=== PATIENT | male | born 1950 | race Caucasian/White ===

== ENCOUNTER 2024-02-04 08:10 | Inpatient (IN) | payer MEDICARE, OTHER, SELFPAY ==
[2024-02-03] VITALS (10 sets, daily range): BP systolic 91–132; BP diastolic 51–63; BMI 24.4; BMI 25.3
--- NOTE | 2024-02-03 11:05 | ED.GENMED ---
History of Present Illness
General
Chief Complaint: Seizure
Source: patient and spouse
Exam Limitations: none
Time Seen by Provider: 02/03/24 10:55
Nursing documentation reviewed up to this point in time: agreed with
History of Present Illness
History of Present Illness:
The patient is a generally well and healthy 73-year-old man with a past medical history of hyperlipidemia who was witnessed by his to have a seizure at around 10 AM this morning. His reports that he was sleeping at the time. She reports
that he sat up in bed and his arms and legs were rigid. She reports that he was unresponsive and slid out of bed. Patient that both sides of his tongue and urinated in his pants. reports he has never had a seizure before. Patient is now
much more awake and alert. He complains of feeling sleepy and says his tongue just feels numb and painful. He denies headache and vision changes. He denies neck pain and back pain. denies any heavy alcohol use or changes in medication.
Past History
Past History
ED Past Medical History: HTN and Hypercholesterolemia
ED Past Surgical History: Appendectomy, Orthopedic and Tonsilectomy
Social History
Tobacco: Other
Alcohol: Occasional
Drug: None
Personal:
Living: with family
Employment: Other
Family History
Family History: Other
Review of Systems
Review of Systems
Allergies reviewed?: Yes
All Other Systems: ROS reviewed and negative except as documented in HPI and ROS
Constitutional: Reports fatigue
EENT: Reports other (Bit tongue)
Respiratory: Reports no symptoms
Cardiac: Reports no symptoms
ABD/GI: Reports no symptoms
: Reports no symptoms
Musculoskeletal: Reports no symptoms
Skin: Reports no symptoms
Neurological: Reports other
Endocrine: Reports no symptoms
Hematologic/Lymphatic: Reports no symptoms
Psychiatric: Reports no symptoms
Phy Exam
Physical Exam
Physical Exam:
Physical Exam
General: Patient appears tired but no acute distress. He is arousable and answers all questions. Atraumatic appearing face and head
Neck: supple. no meningeal signs. Nontender C-spine. Teeth willis along both sides of tongue without any deep laceration. dried blood in mouth
Heart: s1/s2 regular rate and rhythm, no murmur. equal radial pulses.
Lungs: no acute respiratory distress. clear. No vertebral spine tenderness
Abdomen: Soft, nontender
Neuro: alert and orientedx3. no focal neurological deficits. Face symmetric. Equal sensation and strength bilaterally
Skin: no rash
Psychiatric: well kept. interactive and cooperative
Extremities: Atraumatic upper and lower extremities
Course
Orders/Labs/Results
Orders:
Orders
02/03/24
Electrocardiogram (*1) Stat
Comment: ALREADY DONE
02/03/24 11:01
CT Head W/o Iv Contrast Urgent
Comment:
Reason For Exam: new onset seizure
02/03/24 11:02
Electrocardiogram (*1) Urgent
Reason for Study: Other
Other Reason for Exam: seizure
EKG- Treatment ONCE
02/03/24 11:03
0.9% Sodium Chloride 500 ml [Nss] 500 ml IV BOLUS
Ondansetron Injectable [Zofran] 4 mg IV NOW STA
02/03/24 11:13
Complete Blood Count/With Diff Urgent
Comprehensive Metabolic Panel Urgent
02/03/24 13:41
Troponin I Urgent
Abnormal Lab Results
02/03/24
11:13
RBC 4.57 L 10^6/uL
(4.70-6.10)
Abs Immat Gran (auto) 0.1 H 10^3/uL
(0-0.05)
Immature Gran % 1.1 H %
(0-0.5)
Carbon Dioxide 18 L mmol/L
(22-30)
BUN 24 H mg/dl
(9-20)
Glucose 165 H mg/dl
(70-99)
02/03/24 11:13
02/03/24 11:13
Vital Signs
Initial and Last Documented VS:
Initial Vital Signs
Temp Pulse Resp BP Pulse Ox
97.6 F 65 16 121/52 92
02/03/24 10:51 02/03/24 10:51 02/03/24 10:51 02/03/24 10:51 02/03/24 10:51
Last Documented Vital Signs
Temp Pulse Resp BP Pulse Ox
97.6 F 54 11 113/62 98
02/03/24 10:51 02/03/24 13:30 02/03/24 13:30 02/03/24 13:00 02/03/24 13:30
MDM/Problems Addressed
Differential Diagnosis Includes:
New onset seizure, epilepsy, intracranial hemorrhage, syncope
MDM/Problems Addressed:
Patient presents with new onset acute seizure
*Radiology
Radiology exam reviewed: radiology read reviewed
*Pulse Oximetry
Patient hypoxic: no
*EKG
Interpreted by ED Provider?: Yes
Interpretation: abnormal
Comparison EKG: no comparison EKG present
Rate: bradycardiac
Rhythm: sinus
[place]: left axis deviation
Interval: normal interval
QRS Pattern: normal QRS
Ischemia: no ischemia
*Christian [employer] Reader Interpretation
Rate: bradycardiac
Interpretation: abnormal
Rhythm: sinus
*Critical Care Note
Total Time (30-74mins, 75-104mins- exclusive of procedures): Not Applicable
Data Reviewed
Review of Other/Old Records Reveals: Other (telemetry monitor record from showed a heart rate about 75 bpm in 2019)
Source: patient and spouse
Patient Management
Social determinants of health affecting care: Living situation
Discussion with other providers: Hospitalist
Escalation/DeEscalation of care consider admission/obs:
Fortunately, patient's CAT scan showed no acute disease. Patient has been fully awake and alert with a normal neurological exam. 's history is very consistent with seizure, especially given that patient bit his tongue and urinated in his
pants. However, patient's heart rate has dipped down into the 30s multiple times in the emergency department. Patient reports that over the last few days he has been extremely lightheaded and nearly passing out. Given this history, decision made
to admit the patient and watch his cardiac activity. EEG can also be considered.
ED Attending Note
-
Portions of this chart may have been created with voice recognition software.� Occasional wrong word or��sound alike� substitutions may have occurred due to the inherent limitations of voice recognition software.
Discharge Plan
Departure
Patient Disposition: Admit
Date of Disposition: 02/03/24
Time of Disposition: 13:27
Admit to: Telemetry
Presentation/result/management discussed w/ accepting MD/DO: Hospitalist
Patient with high blood pressure during this ER visit?: Yes
Condition: Good
Covid-19: Not Applicable
Discharge Problem:
Bradycardia, sinus, New onset seizure
Prescriptions:
No Action
Metamucil Fiber Singles 1 PACKET powder in packet
0.5 packet PO DAILY
latanoprost 0.005 % Drops
1 drp BOTH EYES HS
Theragen Tablet
1 tab PO DAILY
ibuprofen [Advil] 200 mg Tablet
200 mg PO Q6HPRN PRN (Reason: mild pain)
olmesartan-hydrochlorothiazide 20-12.5 mg Tablet
1 tab PO DAILY
rosuvastatin [Crestor] 10 mg Tablet
10 mg PO MOWEFR
Referrals:
Philipp Vegas DO [Family Provider] -
Interventions
Interventions:
*Risk Screen - Suicide Last Done: 02/03/24 10:56
*General Assessment Last Done: 02/03/24 10:56
*Neglect/Abuse Screening Last Done: 02/03/24 10:56
*ED COVID-19 Vaccine History Last Done: 02/03/24 10:56
ED- Cardiac Assessment Last Done: 02/03/24 10:57
ED- Neurological Assessment Last Done: 02/03/24 10:57
ED- Pulmonary Assessment Last Done: 02/03/24 10:57
Discharge Date and Time
Print Language: VIETNAMESE
[2024-02-03] MEDS: ZOFRAN 4 MG IV (11:15)
[2024-02-03] MEDS: NSS 500 IV (11:15)
[2024-02-03 11:32] LABS: ALT (SGPT) 22 U/L (0-50); AST (SGOT) 28 U/L (17-59); Albumin 4.2 g/dl (3.5-5.0); Alkaline Phosphatase 40 U/L (38-126); Blood Urea Nitrogen 24 mg/dl (9-20); Calcium 8.9 mg/dl (8.4-10.2); Carbon Dioxide 18 mmol/L (22-30); Chloride 107 mmol/L (98-107); Estimated Creatinine Clearance -14 ml/min; Glucose 165 mg/dl (70-99); Potassium 4.1 mmol/L (3.5-5.1); Sodium 140 mmol/L (135-145); Total Bilirubin 0.5 mg/dl (0.2-1.3); Total Protein 6.6 g/dl (6.3-8.2); eGFR > 60.00
[2024-02-03 11:46] LABS: % Basophils 0.8 % (0-2); % Eosinophils 2.4 % (0-6); % Immature Granulocytes 1.1 % (0-0.5); % Lymphocytes 35.9 % (20.5-51.1); % Monocytes 6.8 % (1.7-9.3); Absolute Basophils 0.1 10^3/uL (0-0.2); Absolute Eosinophils 0.2 10^3/uL (0-0.7); Absolute Immature Granulocytes 0.1 10^3/uL (0-0.05); Absolute Lymphocytes 2.5 10^3/uL (1.2-3.4); Absolute Monocytes 0.5 10^3/uL (0.1-0.6); Absolute Neutrophils 3.7 10^3/uL (1.4-6.5); Hematocrit 41.4 % (39.0-52.0); Hemoglobin 14.1 g/dL (13.0-18.0); Mean Corp Hgb Conc. 34.1 g/dL (33.0-37.0); Mean Corpuscular Hgb 30.9 pg (27.0-31.0); Mean Corpuscular Volume 90.6 fL (80.0-94.0); Mean Platelet Volume 10.2 fL (7.4-10.4); Nucleated Red Blood Cells % 0 % (-); Platelet Count 273 10^3/uL (130-400); Red Blood Cell Count 4.57 10^6/uL (4.70-6.10); Red Cell Dist. Width 12.2 % (11.5-14.5); White Blood Cell Count 7.1 10^3/uL (4.8-10.8)
[2024-02-03 14:13] LABS: Troponin I < 0.012 ng/ml
--- NOTE | 2024-02-03 14:19 | HPS.HSE ---
Family Physician
-
Family Physician: Philipp Vegas
Chief Complaint
-
Seizure this morning
History of Present Illness
73 y/o male with past medical history of hypertension, hypercholesterolemia, diverticulosis, arthritis with concern for fusion of cervical bones, presented after seizure activity this morning. Patient's was present in the patient's room at the
time of encounter and helped with the history. Patient's says that patient stiffened in his bed around 10 am this morning with his hands in the air and his knees flex and feet in the air this morning, he bit his tongue with associated bleeding,
and he was confused afterwards. Patient also says he has also been sleeping more lately, and feeling tingling which wakes him up from sleep, he currently has some nause and mild frontal headache. He denied any fever, cough, or chest pain.
Medical History
Past Medical History
Past Medical History: Reports Other (As per HPI above)
Past Surgical History: Reports Appendectomy, Orthopedic and Tonsilectomy
Social History
Tobacco: Non-smoker
Alcohol: Occasional
Drug: None
Family History
Family History: Hypertension
Allergies / Home Medications
Allergies reflects when Allergies were last updated in [facility].
Home Medications with original date entered in [facility]
Allergy/Medication List:
Allergies
Allergy/AdvReac Type Severity Reaction Status Date / Time
NKA - No Known Allergies Allergy Unknown Uncoded 02/03/24 10:56
Home Medications
psyllium husk (aspartame) 3.4 gram oral powder packet (Metamucil Fiber Singles) 0.5 packet PO DAILY 08/30/11
ibuprofen 200 mg tablet (Advil) 200 mg PO Q6HPRN PRN mild pain 02/03/24
latanoprost 0.005 % eye drops 1 drp BOTH EYES HS 02/03/24
olmesartan 20 mg-hydrochlorothiazide 12.5 mg tablet 1 tab PO DAILY 02/03/24
rosuvastatin 10 mg tablet 10 mg PO MOWEFR 02/03/24
therapeutic multivitamin 1 tab PO DAILY 02/03/24
Review of Systems
-
A 12 point ROS was completed and negative except as noted: Yes
Physical Exam
Vital Signs
Vital Signs
Temp Pulse Resp BP Pulse Ox
97.6 F 54 11 113/62 98
02/03/24 10:51 02/03/24 13:30 02/03/24 13:30 02/03/24 13:00 02/03/24 13:30
Physical Exam
General: No Apparent Distress, Comfortable and Conversant
HEENT: NormoCephalic and Moist mucous membranes
Respiratory: Clear
Cardiac: S1/S2 and Regular Rhythm
GI: Soft, Non Tender and Normal Bowel Sounds
Musculoskeletal: No Cyanosis and No Edema
Skin: Warm and Dry
Neuro: Awake, Alert, AO x 3, Nonfocal/grossly intact and Cranial Nerves Intact
Psych: Calm and Intact Judgment/Insight
Laboratory Results
-
02/03/24 11:13
02/03/24 11:13
Laboratory Results
Total Bilirubin 0.5 mg/dl (0.2-1.3) 02/03/24 11:13
AST 28 U/L (17-59) 02/03/24 11:13
ALT 22 U/L (0-50) 02/03/24 11:13
Alkaline Phosphatase 40 U/L (38-126) 02/03/24 11:13
Troponin I < 0.012 ng/ml 02/03/24 13:41
Impression/Plan
-
Assessment/Plan
Suspected Seizure This Morning with associated tongue-biting
Tingling Sensation waking patient up from sleep
-CT Head with no acute changes
-Consult neurology, recommendations appreciated
-Seizure precautions
-Neurochecks
Concern for symptomatic bradycardia with associated lightheadedness
-In the ER, heart rate was dropping into the 30s several times, as per ER provider
-Patient reports feeling dizzy and tingling when sleeping which wakes him up from sleep
-Tele monitor
-EKG with SB
-Troponins
-Cardiology will be consulted, recommendations appreciated
Hypertension
-Continue home ARB-HCTZ combo
Hypercholesterolemia
-Continue Rosuvastatin
History of Diverticulosis
Arthritis with concern for fusion of cervical bones
DVT PPx: Lovenox
Code Status: Full Code
--- NOTE | 2024-02-03 16:16 | CON.CAR ---
Consultation
Consultation Request
Date/Time Consultation Requested: 02/03/2024
Date/Time Consultation Performed: 02/03/2024
Requesting Provider: Hospitalist Dr. Esqueda
Performing Provider: Dr. Amaral
Reason for Consultation: Bradycardia
Medical History
-
History of Present Illness:
73-year-old male past medical history noted below who presented with suspected seizure activity. Episode witnessed by his . She states he was lying in bed and then suddenly his arms went straight out in the air and he flexed both of his legs
and he appeared to be stiff at the same time he had shouted something he then tilted over and fell off the bed. He was not responsive but was breathing. She called 911. He only recalls being in the ambulance for couple seconds but he says that
everything else is a blank. He just remembers being in the ER. No prior history of seizures or syncope.
Patient states that over the last month he has had 3-4 episodes when he gets this sensation that wakes him up this kind of like some dizziness with some tingling in both of his legs he suddenly wakes up and he is panicked he is briefly disoriented
and then he reorients himself. He was going to see his PCP for evaluation of this issue. No prior history of neurologic issues no trauma no recent changes in medications.
On initial evaluation in the ER he was noted to have sinus bradycardia. Initial ECG notable for sinus bradycardia with heart rate of 46 and second EKG with sinus bradycardia heart rate in the 50s. Review of telemetry in the ER had heart rates in
the 50s. Currently on telemetry his heart rates in the 70s.
Past medical history
Hypertension
Hypercholesterolemia
Diverticulosis
Past Medical History
Past Medical History: Other (Above)
Social History
Tobacco: Non-Smoker
Family History
Family History: Other (Negative for premature CAD)
Allergies / Home Medications
Allergy/AdvReac Type Severity Reaction Status Date / Time
NKA - No Known Allergies Allergy Unknown Uncoded 02/03/24 10:56
�Medication �Instructions �Recorded �Confirmed �Type
psyllium husk (aspartame) 3.4 gram 0.5 packet PO DAILY 08/30/11 02/03/24 History
oral powder packet (Metamucil
Fiber Singles)
ibuprofen 200 mg tablet (Advil) 200 mg PO Q6HPRN PRN mild pain 02/03/24 02/03/24 History
latanoprost 0.005 % eye drops 1 drp BOTH EYES HS 02/03/24 02/03/24 History
olmesartan 20 1 tab PO DAILY 02/03/24 02/03/24 History
mg-hydrochlorothiazide 12.5 mg
tablet
rosuvastatin 10 mg tablet 10 mg PO MOWEFR 02/03/24 02/03/24 History
therapeutic multivitamin 1 tab PO DAILY 02/03/24 02/03/24 History
Review of Systems
-
All other systems: Negative unless noted
Physical Exam
Vital Signs
Temp Pulse Resp BP Pulse Ox
97.6 F 64 18 107/59 96
02/03/24 10:51 02/03/24 15:30 02/03/24 15:30 02/03/24 15:03 02/03/24 15:30
Lab Results
02/03/24 11:13
02/03/24 11:13
Troponin I < 0.012 ng/ml 02/03/24 13:41
Physical Exam
General: Well Developed
HEENT: Normocephalic, Anicteric and Other (I injection points intact pupils are equal external ear normal exam unremarkable)
Respiratory: Clear
Cardiac: Regular Rhythm
GI: Soft, Non Tender, Non Distended and Normal Bowel Sounds
Musculoskeletal: No Clubbing
Skin: Warm, Dry and Rash
Neuro: Awake and Alert
Hematologic/Lymphatic: No Lymphadenopathy
Psych: Calm
Impression / Plan
-
Seizure. Patient had apparent seizure-like activity and bit his tongue. Appears patient had a seizure. This may just be a primary seizure. The possibility of a secondary seizure related to syncope is within the realm of possibility but no clear
evidence at this point that patient had syncopal episode. He was noted to have sinus bradycardia. No evidence yet that the patient's had evidence of symptomatic bradycardia.
-Additional assessment of seizure activity as directed by primary team and neurology
.
Bradycardia. Initial ECG with sinus bradycardia with heart rate of 46. Since in the ER patient send heart rates in the 50s no long pauses or indication for pacing at this time.
-Continue to monitor on telemetry
-Echocardiogram
-Check TSH
Data Reviewed
-
EKG: Report Reviewed by me
Radiology: Report Reviewed by me
Medical Tests (Nuc Med, Echo etc): Report Reviewed by me
Labs: Labs Reviewed by me
Old Records: Reviewed
--- NOTE | 2024-02-03 16:45 | PTCARENOTE ---
Received pt from ED.Pt awake, alert and oriented x3. Pt has chronic pain in neck, knees and back from arthritis, tolerable at this time. Pt also has discomfort on tongue from biting it. Pt VSS 99% on RA.Pt Sb on tele. Pt seizure precautions, bed
rails padded for protection. Pt oriented to room, call schofield within reach, instructed to ring for assistance, verbalized understanding, plan of care ongoing.
[2024-02-03] MEDS: LOVENOX 40 MG SC (17:18)
[2024-02-03] MEDS: XALATAN OPHTHALMIC SOLUTION 1 DROP BOTH EYES (21:13)
[2024-02-03 21:33] LABS: Troponin I 0.031 ng/ml
--- NOTE | 2024-02-03 22:30 | PTCARENOTE ---
Patient with a 2.9 second pause, HR 36. Patient asymptomatic. HEDGE FUND TRADER aware. Plan of care continues.
[2024-02-04] VITALS (10 sets, daily range): BP systolic 88–121; BP diastolic 53–68
--- NOTE | 2024-02-04 00:06 | W.PN.UPDATE ---
Addendum entered and electronically signed by DILIP Addison 02/04/24 06:33:
This am pt had another pause on tele--> 4.8 sec. Again asymptomatic and sleeping.
Will make pt npo in case pacemaker needed.
RN also updated Dr brennan
Original Note:
Update Note
Progress Note Update
RN reports 2.9 sec pause on tele. PT asymptomatic at that time. Sleeping
Will continue to closely watch HR on tele.
--- NOTE | 2024-02-04 06:44 | W.PN.CD ---
Today's Communication / Plan
-
overnight pauses of 3 seconds and 4.9 seconds. Raises question of nocturnal symptoms and seizure prior to admit are related to bradycardia.
- Based on above pacemaker recommended. Will review with EP
-NPO
-Continue to monitor on telemetry
-Echocardiogram
Impression / Plan
-
Seizure. Patient had apparent seizure-like activity and bit his tongue. Primary vs secondary seizurepatietn has been having odd wwaking spells at night. Wakesup in a panic and is disroriented. He says he has an odd sensation just before waking
duringthese events.
- monitor on tele
- neuro assessment
.
Bradycardia. Initial ECG with sinus bradycardia with heart rate of 46. Since in the ER patient send heart rates in the 50s .
overnight pauses of 3 seconds and 4.9 seconds. Raises question of nocturnal symptoms and seizure prior to admit are related to bradycardia.
- Based on above pacemaker recommended. Will review with EP
-Continue to monitor on telemetry
-Echocardiogram
-Check TSH
Physical Exam
Vital Signs/Labs
Vital Signs
Temp Pulse Resp BP Pulse Ox
98.6 F 75 17 101/53 99
02/04/24 03:42 02/04/24 03:42 02/04/24 03:42 02/04/24 03:42 02/04/24 03:42
02/02/24 02/03/24 02/04/24
06:59 06:59 06:59
Actual Weight 66.814 kg
LAB Results
02/03/24 02/03/24 02/04/24
13:41 21:01 02:34
Troponin I < 0.012 0.031 D 0.020 D
Physical Exam
Constitutional: No acute distress
EENT: Anicteric
Cardiovascular: Rhythm & rate is regular
Respiratory: Respiratory effort normal
GI: Soft
Neuro/Psych: Alert
Data Reviewed
-
Date of Service: February 04, 2024
Medical Decision Making: Reviewed Test Results
EKG: Report Reviewed by me
X-Ray/CT/US/MRI/NUC/PET: Report Reviewed by me
Medical Tests (PFT, Pathology etc): Report Reviewed by me
Labs: Labs Reviewed by me
--- NOTE | 2024-02-04 07:25 | PTCARENOTE ---
Patient had a 4.8 second pause, asymptomatic. HEALTH DATA ADMINISTRATOR made aware. She place order for patient to be NPO, Dr. Amaral made aware via TT and came to floor to see patient.
[2024-02-04] MEDS: METAMUCIL, KONSYL PO (08:25)
[2024-02-04] MEDS: ORETIC 12.5 MG PO (08:25)
[2024-02-04] MEDS: BENICAR 20 MG PO (08:25)
[2024-02-04] MEDS: THERAGRAN 1 TABLET PO (08:25)
[2024-02-04] MEDS: CRESTOR 10 MG PO (08:27)
[2024-02-04 08:40] LABS: % Basophils 0.4 % (0-2); % Eosinophils 0.8 % (0-6); % Immature Granulocytes 0.3 % (0-0.5); % Lymphocytes 14.7 % (20.5-51.1); % Monocytes 6.9 % (1.7-9.3); % Neutrophils 76.9 % (42.2-75.2); Absolute Eosinophils 0.1 10^3/uL (0-0.7); Absolute Lymphocytes 1.1 10^3/uL (1.2-3.4); Absolute Monocytes 0.5 10^3/uL (0.1-0.6); Absolute Neutrophils 5.5 10^3/uL (1.4-6.5); Hematocrit 36.4 % (39.0-52.0); Hemoglobin 12.5 g/dL (13.0-18.0); Mean Corp Hgb Conc. 34.3 g/dL (33.0-37.0); Mean Corpuscular Hgb 30.9 pg (27.0-31.0); Mean Corpuscular Volume 90.1 fL (80.0-94.0); Mean Platelet Volume 10.4 fL (7.4-10.4); Nucleated Red Blood Cells % 0 % (-); Platelet Count 188 10^3/uL (130-400); Red Blood Cell Count 4.04 10^6/uL (4.70-6.10); Red Cell Dist. Width 12.3 % (11.5-14.5); White Blood Cell Count 7.2 10^3/uL (4.8-10.8)
[2024-02-04 09:12] LABS: Blood Urea Nitrogen 22 mg/dl (9-20); Calcium 8.9 mg/dl (8.4-10.2); Carbon Dioxide 25 mmol/L (22-30); Chloride 104 mmol/L (98-107); Estimated Creatinine Clearance 44 ml/min; Glucose 96 mg/dl (70-99); Magnesium 2.4 mg/dl (1.6-2.3); Potassium 3.8 mmol/L (3.5-5.1); Sodium 137 mmol/L (135-145); eGFR 58.73
[2024-02-04 09:29] LABS: Troponin I 0.013 ng/ml
[2024-02-04 09:42] LABS: TSH 1.27 uIU/ml (0.47-4.68)
--- NOTE | 2024-02-04 09:55 | W.PN.HOSP.TC ---
Today's Communication/Plan
-
Neurology consult
Pacemaker placement
TSH
Assessment / Plan
Assessment / Plan
Gen-AAOx3, NAD
HEENT-NC, AT, anicteric, clear oral mm
Neck-supple
CV-reg, no M, +S1/S2
Lungs-clear B/L
Abd-soft, NT, ND
Ext-no edema
Musculoskeletal-no cyanosis, clubbing
Skin-warm and dry
Neuro-grossly non-focal
Psych-calm, cooperative
Symptomatic bradycardia -appreciate cardiology input. Await pacemaker placement. 4.8-second pause noted overnight. Occurred during sleep. TSH pending.
Presumed seizure -denies history of seizures. Did have bowel incontinence and tongue biting associated with reported tonic-clonic activity noted by at home.
Neurology consulted. CT head negative.
Essential hypertension -stable.
Hyperlipidemia
Diverticulosis
Glaucoma
full code
Anticipated Discharge: Within 24 hours
Subjective/Interval History
-
Date of Service: February 04, 2024
Patient seen and examined. No complaints.
Objective Data
-
Labs:
Laboratory Results
02/04/24
06:15
WBC 7.2
Hgb 12.5 L
Hct 36.4 L
Plt Count 188 D
Sodium 137
Potassium 3.8
Chloride 104
Carbon Dioxide 25
BUN 22 H
Creatinine 1.3
Glucose 96
Calcium 8.9
Vital Signs:
Vital Signs
Temp Pulse Resp BP Pulse Ox
98.9 F 69 16 104/62 96
02/04/24 07:00 02/04/24 07:00 02/04/24 07:00 02/04/24 07:00 02/04/24 07:00
I&O
02/03/24 02/04/24 02/05/24
06:59 06:59 06:59
Intake Total 480 / 480
Balance 480 / 480
Review of Systems
-
History Source: Patient
All other systems: Reviewed and negative
--- NOTE | 2024-02-04 11:20 | CON.NEURO4 ---
Consultation - Neurology 4
-
CONSULTING PHYSICIAN: Marc Chapman MD(Neurology)
REFERRING PHYSICIAN: Luis Enrique
DICTATED BY: Marc Chapman MD
DATE/TIME OF REQUEST: 02/03/2024
DATE/TIME OF CONSULTATION: 02/04/2024 1030A
Reason for Consultation: AMS
History of Present Illness:
This is a 73 year old right handed male who was admitted to the hospital with new onset seizure. He gives a h/o hypertension, hypercholesterolemia, diverticulosis, cervical spondylosis presented after seizure activity yesterday morning. Pat
remebers getting up earlier in the morning and letting his dogs out. he then returned to bed. Patient's says that patient stiffened in his bed around 10 am this morning with his hands in the air and his knees flexed and feet in the air this
morning, he bit his tongue with associated bleeding, and he was confused afterwards. Patient also says he has also been sleeping more lately, and feeling tingling which wakes him up from sleep.
He denied any fever, cough, or chest pain.
Following admission he has had no further episodes. However he had bradycardia on telemetry. Cardiology consult recommended pacemaker
Past Medical History: HTN, Diverticulosis
Surgical History: Appendectomy
Family History: None
Social History: Does not smoke or use alcohol
Allergies: NKA
Home Medications: psyllium husk (aspartame) 3.4 gram oral powder packet (Metamucil Fiber Singles) 0.5 packet PO DAILY 08/30/11
ibuprofen 200 mg tablet (Advil) 200 mg PO Q6HPRN PRN mild pain 02/03/24
latanoprost 0.005 % eye drops 1 drp BOTH EYES HS 02/03/24
olmesartan 20 mg-hydrochlorothiazide 12.5 mg tablet 1 tab PO DAILY 02/03/24
rosuvastatin 10 mg tablet 10 mg PO MOWEFR 02/03/24
therapeutic multivitamin 1 tab PO DAILY 02/03/24
Review of Symptoms:
Patient denies any fever, headache, chest pain, shortness of breath, GI or symptoms.
�Per the HPI.�All systems are reviewed negative except above.
�- Remove any of these problems that patient may have complained about in the HPI.
�- If patient is unresponsive, intubated or demented, say 'Per the HPI. I am unable to obtain a complete review of systems�because of patient's inability to provide history.'
Vital Signs: Temp Pulse Resp BP Pulse Ox
37.2 C 68 18 118/64 92
02/04/24 11:08 02/04/24 11:08 02/04/24 11:08 02/04/24 11:08 02/04/24 11:08
Lab Results
02/04/24 06:15
02/04/24 06:15
Sodium 137 mmol/L (135-145) 02/04/24 06:15
Potassium 3.8 mmol/L (3.5-5.1) 02/04/24 06:15
BUN 22 mg/dl (9-20) H 02/04/24 06:15
Glucose 96 mg/dl (70-99) 02/04/24 06:15
Calcium 8.9 mg/dl (8.4-10.2) 02/04/24 06:15
Physical Exam:
The patient is afebrile, heart sounds S1 and S2 are (regular / irregular), and chest is clear to auscultation bilaterally.
- If not clear, describe.
Neurologic Examination:
The patient is awake, alert and oriented x 3. (He/She) is able to follow commands and answer questions appropriately. There is no aphasia or dysarthria. On cranial nerve assessment, pupils are 3 mm bilateral, round and reactive to light and
accommodation. Visual mccallum are full. Extraocular movements are intact. Facial sensations are intact and bilaterally symmetrical, there is no facial asymmetry. Hearing is intact bilaterally to normal conversation volume. Tongue palate and uvula
are midline. Sternocleidomastoid strengths are full bilaterally. Motor strengths are 5/5 bilateral upper and lower extremities on medical research Tribe scale. There is no drift or involuntary movement noted. Deep tendon reflexes are 2+ bilateral
upper and lower extremities and Babinski is absent bilaterally. Sensations of pain, touch, temperature and vibration are intact and bilaterally symmetrical. There was no extinction noted on double simultaneous stimulation. Coordination is intact by
finger to nose bilaterally.
Lab Results:
Neuro Imaging: CT Head: Diffuse cortical atrophy. Small vessel disease
Impression:
Mr. ZEESHAN LEWIS is a 73 year old M who has presented to the hospital with new onset seizure and symptomatic bradycardia
Recommendations:
1. No indication for AED
2. Cardiology Consult
3. May proceed with pacemaker placement
4. EEG
Discussed patient care with: Hospitalist:Janine Ayala
Vital Signs and Labs
-
Vital Signs and Labs:
Vital Signs
Temp Pulse Resp BP Pulse Ox
37.2 C 68 18 118/64 92
02/04/24 11:08 02/04/24 11:08 02/04/24 11:08 02/04/24 11:08 02/04/24 11:08
Lab Results
02/04/24 06:15
02/04/24 06:15
Sodium 137 mmol/L (135-145) 02/04/24 06:15
Potassium 3.8 mmol/L (3.5-5.1) 02/04/24 06:15
BUN 22 mg/dl (9-20) H 02/04/24 06:15
Glucose 96 mg/dl (70-99) 02/04/24 06:15
Calcium 8.9 mg/dl (8.4-10.2) 02/04/24 06:15
--- NOTE | 2024-02-04 16:44 | CM ---
Alert awake oriented patient who lives with his Judy who lives in a 2 story home with 3 step to enter and 14 steps to bed and bathroom. He is independent in all activities of daily living.He uses a cane at times.Will need PT OT for dc plan.
No VN hx /No SNF hx
Hr uses a walker
Pharmacy [facility]
PCP DR Pollard
PLAN Will Need PT OT for dc planning
--- NOTE | 2024-02-04 17:18 | ITS.CL.PACE ---
Addendum entered and electronically signed by Jeffrey Lopez MD 02/04/24 17:46:
-
-
Addendum/Corrections:
Date of Procedure: February 04, 2024.
Procedure: Pacemaker Implantation.
Indication: The pacemaker is for the treatment of nonreversible symptomatic bradycardia due to sinus node dysfunction.
Performing physician: Jeffrey Lopez MD., [facility].
Implants:
Pulse Generator: Medtronic; Model# [id number]; Serial# [id number].
RA Lead: Medtronic; Model# 5076-52cm; Serial# [id number].
RV Lead: Medtronic; Model# 3830-69cm; Serial# [id number].
-
-
Original Note:
[facility] - Pacemaker Implant
Pacemaker Implant
Procedure Report:
Date of Procedure: [ ]
Procedure: Pacemaker Implantation. [ ] upper extremity venogram.
Indication: [ ]. The pacemaker is for the treatment of nonreversible symptomatic bradycardia due to [ ] sinus node dysfunction or [ ] second and/or third degree atrioventricular block.
Performing physician: Jeffrey Lopez MD., [facility].
Implants:
Pulse Generator: Medtronic; Model# [id number]; Serial# [id number][ ].
RA Lead: Medtronic; Model# 5076-45cm; Serial# [id number][ ].
RV Lead: Medtronic; Model# 5076-52cm; Serial# [id number][ ].
RV Lead: Medtronic; Model# 3830-69cm; Serial# [id number][ ].
Technique: A time out was performed. The procedure site was identified. The patient was anesthetized by the anesthesia service. Preoperative cefazolin was administered. The patient was prepped and draped in the usual fashion. Local anesthetic was
applied to the left prepectoral subcutaneous tissue. A 3 inch incision was made along the left deltopectoral groove. Dissection was carried to the fascia. The left cephalic vein was easily isolated and proximal and distal control with 2-0 Vicryl
suture. Using a micropuncture needle to access the cephalic vein under direct visualization a wire was advanced into the central circulation. A 7 Fr introducer was placed to allow two 0.35 J wires to be advanced. The leads were introduced with
hemostatic peel away introducer sheaths.The RV lead was placed using utilizing the [employer] His delivery catheter ([id number]) that was advanced to the left bundle area as confirmed by fluoroscopy in the [place] and [place] projections. The lead tip was
advanced. PVC morphology or paced morphology was reviewed. When a satisfactory location was identified the lead was screwed into position with serial turns. After each series of turns unipolar sensed morphology and impedance and paced morphology of
V1 was analyzed. The lead was further advanced until satisfactory morphology and electrical characteristics were confirmed. The ventricular lead was secured to the pectoralis muscle and fascia with two 0-silk sutures. The atrial lead was then
placed in the right atrial appendage. 8 volt pacing did not capture the diaphragm from either lead. The atrial lead was secured to the pectoralis muscle and fascia with two 0-silk sutures. A subcutaneous pocket was created with Bovie cautery.
Hemostasis was excellent.The leads were appropriately attached to the device. The pocket was irrigated with antibiotic solution. The device and leads were placed in the pocket. The incision was closed in three layers with absorbable suture.
Steri-strips and a silver impregnated dressing were placed. Estimated blood loss was 5 ml. There were no complications. Fluoroscopy: time 2.5 minutes and DAP 0.979 GyCM2. The device was then interrogated after skin closure. No IV contrast was
administered.
Lead Analysis:
RA lead: P: 4.9 mV; Threshold: 0.75 V @ 0.4 ms; Impedance: 874 ohms.
RV lead (bipolar): R: 4.5 mV; Threshold: 0.5 V @ 0.4 ms; Impedance: 627] ohms.
RV lead (unipolar): R: 5.4 mV; Threshold: 0.5 V @ 0.4 ms; Impedance: 475 ohms.
LBB area results: Paced QRS characteristics: V1 has QR morphology and the QRS measures 117 ms in duration, stim to peak V5/6 is 90 ms, and peak V1 to peak V6 is 26 ms.
Final Programming: MVP (AAIR to DDDR) 60-130 bpm.
Conclusion: Uncomplicated Medtronic pacemaker implant. The pacing system is MRI conditional.
Recommendation: Routine post pacemaker care.
cc: Philipp Pollard DO and Robin Amaral MD.
[2024-02-04] MEDS: LOVENOX 40 MG SC (18:03)
[2024-02-04 21:02] LABS: Hepatitis C Antibody Negative (Negative)
[2024-02-04] MEDS: ANCEF 5 IV (21:26)
[2024-02-04] MEDS: XALATAN OPHTHALMIC SOLUTION 1 DROP BOTH EYES (21:26)
[2024-02-05] MEDS: TYLENOL 650 MG PO ×2 (03:29→13:07)
[2024-02-05 03:55] VITALS: BP 105/57
[2024-02-05 05:37] LABS: Blood Urea Nitrogen 25 mg/dl (9-20); Calcium 9.3 mg/dl (8.4-10.2); Carbon Dioxide 23 mmol/L (22-30); Chloride 105 mmol/L (98-107); Estimated Creatinine Clearance 44 ml/min; Glucose 123 mg/dl (70-99); Potassium 4.2 mmol/L (3.5-5.1); Sodium 139 mmol/L (135-145); eGFR 58.73
[2024-02-05] MEDS: ANCEF 5 IV (06:05)
[2024-02-05 07:55] VITALS: BP 122/72
--- NOTE | 2024-02-05 07:55 | EEG.RPT ---
Electroencephalogram Report
Recording
Date of EE02/05/24
Length of EEG recordin minutes
Done with Video Recording: Yes
Patient Status: Inpatient
Recording Conditions: Awake and Drowsy
Hand Dominance: Unknown
Report
LESS THAN 1 HOUR EEG REPORT
LESS THAN 1 HOUR EEG INTERPRETATION:
Unremarkable EEG for age
CLINICAL CORRELATION:
A normal EEG does not rule out a diagnosis of epilepsy.� If clinical suspicion for seizure persists, a prolonged recording may be warranted.
Clinical correlation is advised.
METHODS:
A 21 channel digitized electroencephalogram (EEG) was performed using the 10/20 international system of electrode placement and one-lead of ECG recorded. Study lasted 43 minutes
ELECTROENCEPHALOGRAPHER IMPRESSION(S):
Quality of study
Good
Background
Medium amplitude background with predominantly alpha and beta frequencies in the awake and drowsy states.
Normal posterior dominant rhythm of 9 Hz which attenuates with eye opening.
There were no significant asymmetries of background activity noted.
Sleep
Drowsiness present
Stage 1 present
Photic Stimulation
No activation
ECG
Normal sinus rhythm
[2024-02-05] MEDS: ORETIC 12.5 MG PO (10:00)
[2024-02-05] MEDS: THERAGRAN 1 TABLET PO (10:01)
[2024-02-05] MEDS: METAMUCIL, KONSYL PO (10:01)
[2024-02-05] MEDS: BENICAR 20 MG PO (10:01)
[2024-02-05] MEDS: METAMUCIL, KONSYL 0.5 PACKET PO (10:05)
[2024-02-05 11:33] VITALS: BP 129/83
--- NOTE | 2024-02-05 11:37 | W.PN.HOSP.TC ---
Addendum entered and electronically signed by Eder Ayala DO 02/05/24 11:43:
I spoke with neurology, Dr. Gutierrez. He states there is no reason to restrict driving as this was a provoked seizure due to bradycardia.
Original Note:
Today's Communication/Plan
-
Discharge
Assessment / Plan
Assessment / Plan
Gen-AAOx3, NAD
HEENT-NC, AT, anicteric, clear oral mm
Neck-supple
CV-reg, no M, +S1/S2
Lungs-clear B/L
Abd-soft, NT, ND
Ext-no edema
Musculoskeletal-no cyanosis, clubbing
Skin-warm and dry
Neuro-grossly non-focal
Psych-calm, cooperative
Symptomatic bradycardia -stable after permanent pacemaker placement. TSH normal. Follow-up with cardiology after discharge.
Presumed seizure -denies history of seizures. Did have bowel incontinence and tongue biting associated with reported tonic-clonic activity noted by at home.
Neurology does not recommend seizure meds, they do not recommend outpatient follow-up. CT head negative.
Essential hypertension -stable.
Hyperlipidemia
Diverticulosis
Glaucoma
full code
Dispo - medically stable for discharge. Awaiting cardiology to remove pacemaker dressing prior to discharge. Outpatient follow-up. Discussed with family at the bedside.
32 minutes spent in discharge process.
Anticipated Discharge: Today
Subjective/Interval History
-
Date of Service: February 05, 2024
Patient seen and examined. No complaints. Eager to go home. Family at the bedside.
Objective Data
-
Labs:
Laboratory Results
02/05/24
04:17
Sodium 139
Potassium 4.2
Chloride 105
Carbon Dioxide 23
BUN 25 H
Creatinine 1.3
Glucose 123 H
Calcium 9.3
Vital Signs:
Vital Signs
Temp Pulse Resp BP Pulse Ox
99.2 F 69 18 129/83 95
02/05/24 11:33 02/05/24 11:33 02/05/24 11:33 02/05/24 11:33 02/05/24 11:33
I&O
02/04/24 02/05/24 02/06/24
06:59 06:59 06:59
Intake Total 480 / 480 680 / 680
Output Total 200 / 200
Balance 480 / 480 480 / 480
Review of Systems
-
History Source: Patient
All other systems: Reviewed and negative
--- NOTE | 2024-02-05 11:42 | W.DS.TRANS ---
DC Summary - [employer]
-
Discharge Instructions:
Discharge Diagnosis/Procedures Symptomatic bradycardia, possible seizure,
pacemaker implant
Diet Low Cholesterol,Low Fat,2 Gram Sodium
Activity As tolerated
Driving Restrictions As prior to admission
Bathing Restrictions None
Instructions:
Stand-Alone Forms: DC Inst - Implanted Device
Changes to Home Medications: No
Discharge Medications:
DC Medications w/original date entered in [facility]
psyllium husk (aspartame) 3.4 gram oral powder packet (Metamucil Fiber Singles) 0.5 packet PO DAILY 08/30/11
ibuprofen 200 mg tablet (Advil) 200 mg PO Q6HPRN PRN mild pain 02/03/24
latanoprost 0.005 % eye drops 1 drp BOTH EYES HS 02/03/24
olmesartan 20 mg-hydrochlorothiazide 12.5 mg tablet 1 tab PO DAILY 02/03/24
rosuvastatin 10 mg tablet 10 mg PO MOWEFR 02/03/24
therapeutic multivitamin 1 tab PO DAILY 02/03/24
Home Medication Changes
Pending Results: No
--- NOTE | 2024-02-05 12:34 | W.PN.UPDATE ---
Update Note
Progress Note Update
Patient underwent pacemaker implantation yesterday, 02/05/2024.
Immobilizer removed. Pressure dressing removed. No hematoma. No swelling of the left upper extremity.
Activity restrictions were reviewed. The patient verbalized understanding.
He will follow-up in our office as directed.
--- NOTE | 2024-02-05 14:51 | CM ---
MD entered order for discharge.
Spoke with pt and Judy in room.
Offered VN requested [facility] .
[facility] liaison .
drove him home.
PLAN Home with [facility]
--- NOTE | 2024-02-05 15:05 | VNURNOTE ---
Home Health Liaison spoke with patient and by phone at 1500 to discuss [facility] nurse/therapy, visits, schedule and homebound status. Patient is agreeable and understands that visits at home will be 2-3 x per week to assess and teach medical
management.
Patient is aware that [facility] will contact them for start of care in 1-2 days after discharge from .
[facility] referral completed in [facility].
== END 2024-02-05 13:30 | disposition home health service (06) | DRG 244 ==
LOC: 4 EAST ACU 08:10
PROVIDERS: Internal Medicine Cardiovascular Disease; ADMITTING PHYSICIAN Hospitalist; ATTENDING PHYSICIAN Hospitalist; CONSULT PHYSICIAN Internal Medicine Cardiovascular Disease; EMERGENCY PHYSICIAN Emergency Medicine; FAMILY PHYSICIAN Internal Medicine; OTHER PHYSICIAN Psychiatry & Neurology Neurology
PROC: 02HK3JZ Insertion of Pacemaker Lead into Right Ventricle, Percutaneous Approach (ICD-10-PCS; 2024-02-04)
PROC: 02H63JZ Insertion of Pacemaker Lead into Right Atrium, Percutaneous Approach (ICD-10-PCS; 2024-02-04)
PROC: 0JH606Z Insertion of Pacemaker, Dual Chamber into Chest Subcutaneous Tissue and Fascia, Open Approach (ICD-10-PCS; 2024-02-04)
DX: R00.1 Bradycardia, unspecified (principal); R56.9 Unspecified convulsions; E78.5 Hyperlipidemia, unspecified; I10 Essential (primary) hypertension; M19.90 Unspecified osteoarthritis, unspecified site; E78.00 Pure hypercholesterolemia, unspecified; K57.90 Diverticulosis of intestine, part unspecified, without perforation or abscess without bleeding; M47.812 Spondylosis without myelopathy or radiculopathy, cervical region; R20.2 Paresthesia of skin; W06.XXXA Fall from bed, initial encounter; Y93.89 Activity, other specified; Y92.003 Bedroom of unspecified non-institutional (private) residence as the place of occurrence of the external cause
CPT/HCPCS: 33208; 70450; 71045; 80048; 80053; 83735; 84443; 84484; 85025; 86803; 93005; 93306; 95812; 96361; 96374; 99285; C1769; C1785; C1887; C1892; C1898

== ENCOUNTER → 2024-03-14 08:29 | Outpatient (REF) | payer MEDICARE, OTHER, SELFPAY | LOC: DHCBC/DCA 08:29 | PROVIDERS: ATTENDING PHYSICIAN Internal Medicine Cardiovascular Disease; FAMILY PHYSICIAN Internal Medicine | DX: R00.1 Bradycardia, unspecified (principal); Z95.0 Presence of cardiac pacemaker; I47.29 Other ventricular tachycardia; R94.31 Abnormal electrocardiogram [ECG] [EKG] | CPT/HCPCS: 78452; 93017; A9500; J2785 ==

== ENCOUNTER 2024-05-02 07:02 | Emergency (ER) | payer MEDICARE, OTHER, SELFPAY ==
[2024-05-02 07:09] VITALS: BP 125/60
--- NOTE | 2024-05-02 07:32 | ED.GENMED ---
History of Present Illness
General
Chief Complaint: Seizure
Source: patient
Exam Limitations: none
Time Seen by Provider: 05/02/24 07:13
History of Present Illness
History of Present Illness:
73-year-old male presents via EMS from home after having a seizure. His heard him moaning in a different room and she encountered him on the floor convulsing. There is blood coming from his mouth. His eyes were open and he was breathing but
he was not responsive. He was postictal for EMS. He does not remember getting into the ambulance. He had a seizure this January and was admitted and thought to have seizure related to his bradycardia. He has since had a pacemaker placed. He denies
any current chest pain. He does not recall being in the kitchen where he had a seizure today. He is not currently on any seizure medication. He has a glass of wine a week.
Past History
Past History
ED Past Medical History: HTN and Hypercholesterolemia
ED Past Surgical History: Appendectomy, Orthopedic and Tonsilectomy
Social History
Tobacco: Other
Alcohol: Occasional
Drug: None
Personal:
Living: with family
Employment: Other
Family History
Family History: Other
Phy Exam
Physical Exam
Physical Exam:
General: Well-developed male no acute respiratory distress
HEENT: Normocephalic bite willis to bilateral aspects of the tongue pupils equal round reactive to light no obvious signs of head trauma heart: Regular rate and rhythm
Lungs: Clear no wheeze
Abdomen is soft nontender nondistended no guarding or rebound
Neurologic exam: Alert somewhat somnolent responsive however. Following commands no droop. No weakness.
Extremities: No cyanosis or edema
Skin: Abrasion noted to the right lateral arm
Course
Orders/Labs/Results
Orders:
Orders
05/02/24 07:25
Electrocardiogram (*1) Urgent
Reason for Study: Other
Other Reason for Exam: seizure
CT Head W/o Iv Contrast Urgent
Comment:
Reason For Exam: fall, seizure
EKG- Treatment ONCE
Interrogate Pacemaker- Treatment ONCE
05/02/24 07:26
Complete Blood Count/With Diff Urgent
Comprehensive Metabolic Panel Urgent
05/02/24 07:35
Levetiracetam Injectable [Keppra] 1,000 mg IV NOW STA
05/02/24 08:12
0.9% Sodium Chloride 500 ml [Nss] 500 ml IV BOLUS
05/02/24 10:23
0.9% Sodium Chloride 1000 ml [Nss] 1,000 ml IV BOLUS
Abnormal Lab Results
05/02/24
07:26
Carbon Dioxide 14 L* mmol/L
(22-30)
BUN 33 H mg/dl
(9-20)
Creatinine 1.4 H mg/dL
(0.7-1.3)
Glucose 177 H mg/dl
(70-99)
05/02/24 07:26
05/02/24 07:26
Vital Signs
Initial and Last Documented VS:
Initial Vital Signs
Temp Pulse Resp BP Pulse Ox
97.5 F 64 16 125/60 98
05/02/24 07:09 05/02/24 07:09 05/02/24 07:09 05/02/24 07:09 05/02/24 07:09
Last Documented Vital Signs
Temp Pulse Resp BP Pulse Ox
97.5 F 61 13 108/61 100
05/02/24 07:09 05/02/24 11:00 05/02/24 11:00 05/02/24 11:00 05/02/24 11:00
MDM/Problems Addressed
Differential Diagnosis Includes:
Seizure. Doubt electrolyte abnormality but will check labs. Will check CT of head given fall and possible head trauma in the setting of a seizure. Consulted with neurology who recommended IV Keppra load 1000 mg followed by 500 mg of Keppra twice
daily. I reviewed prior hospital records which demonstrated normal EEG in January when he had another seizure. Will interrogate pacemaker
*Critical Care Note
Total Time (30-74mins, 75-104mins- exclusive of procedures): Not Applicable
Update Note
Update Note:
Patient reexamined return to his baseline he is alert. He was given a bolus of Keppra here based on neurology recommendation. Will send patient home on Keppra 500 twice a day with close neurology follow-up. Patient and in agreement.
Please note [employer] form was filled out for seizure reporting
ED Attending Note
-
Portions of this chart may have been created with voice recognition software.� Occasional wrong word or��sound alike� substitutions may have occurred due to the inherent limitations of voice recognition software.
Discharge Plan
Departure
Patient Disposition: Home (Routine Discharge)
Date of Disposition: 05/02/24
Time of Disposition: 10:57
Patient with high blood pressure during this ER visit?: No
Discharge Problem:
Seizure
Instructions: Seizures, Adult (DC)
Prescriptions:
New
levetiracetam [Keppra] 500 mg tablet
500 mg PO BID Qty: 60 0RF
No Action
Metamucil Fiber Singles 1 PACKET powder in packet
0.5 packet PO DAILY
latanoprost 0.005 % Drops
1 drp BOTH EYES HS
therapeutic multivitamin Tablet
1 tab PO DAILY
ibuprofen [Advil] 200 mg Tablet
200 mg PO Q6HPRN PRN (Reason: mild pain)
olmesartan-hydrochlorothiazide 20-12.5 mg Tablet
1 tab PO DAILY
rosuvastatin 10 mg Tablet
10 mg PO MOWEFR
Referrals:
Marc Chapman MD [Active] -
UNKNOWN - PT DOES,NOT KNOW [Family Provider] -
Activity Restrictions/Additional Instructions:
Take Keppra twice a day as directed. Please follow-up with neurology. Return if worse otherwise
Interventions
Interventions:
*Risk Screen - Suicide Last Done: 05/02/24 07:13
*General Assessment Last Done: 05/02/24 07:13
*Neglect/Abuse Screening Last Done: 05/02/24 07:13
*ED COVID-19 Vaccine History Last Done: 05/02/24 07:13
ED- Cardiac Assessment Last Done: 05/02/24 07:13
ED- Neurological Assessment Last Done: 05/02/24 07:13
ED- Pulmonary Assessment Last Done: 05/02/24 07:13
Discharge Date and Time
Print Language: CITIZEN [place]
[2024-05-02] MEDS: KEPPRA 1000 MG IV (07:39)
[2024-05-02 07:41] LABS: % Basophils 1.1 % (0-2); % Eosinophils 4.3 % (0-6); % Immature Granulocytes 0.5 % (0-0.5); % Lymphocytes 32.2 % (20.5-51.1); % Monocytes 7.6 % (1.7-9.3); % Neutrophils 54.3 % (42.2-75.2); Absolute Basophils 0.1 10^3/uL (0-0.2); Absolute Eosinophils 0.2 10^3/uL (0-0.7); Absolute Lymphocytes 1.8 10^3/uL (1.2-3.4); Absolute Monocytes 0.4 10^3/uL (0.1-0.6); Hematocrit 41.8 % (39.0-52.0); Hemoglobin 14.4 g/dL (13.0-18.0); Mean Corp Hgb Conc. 34.4 g/dL (33.0-37.0); Mean Corpuscular Hgb 30.3 pg (27.0-31.0); Mean Corpuscular Volume 87.8 fL (80.0-94.0); Mean Platelet Volume 10.4 fL (7.4-10.4); Nucleated Red Blood Cells % 0 % (-); Platelet Count 262 10^3/uL (130-400); Red Blood Cell Count 4.76 10^6/uL (4.70-6.10); Red Cell Dist. Width 12.3 % (11.5-14.5); White Blood Cell Count 5.5 10^3/uL (4.8-10.8)
[2024-05-02 08:01] VITALS: BP 103/64
[2024-05-02 08:01] LABS: ALT (SGPT) 25 U/L (0-50); AST (SGOT) 31 U/L (17-59); Albumin 4.8 g/dl (3.5-5.0); Alkaline Phosphatase 48 U/L (38-126); Blood Urea Nitrogen 33 mg/dl (9-20); Calcium 9.9 mg/dl (8.4-10.2); Carbon Dioxide 14 mmol/L (22-30); Chloride 103 mmol/L (98-107); Glucose 177 mg/dl (70-99); Potassium 4.8 mmol/L (3.5-5.1); Sodium 139 mmol/L (135-145); Total Bilirubin 0.4 mg/dl (0.2-1.3); eGFR 53.74
[2024-05-02] MEDS: NSS 500 IV (08:13)
[2024-05-02 09:00] VITALS: BP 115/70
[2024-05-02] MEDS: NSS 1000 IV (10:31)
[2024-05-02 11:00] VITALS: BP 108/61
== END 2024-05-02 11:40 | disposition home or self-care (01) ==
LOC: EMR 07:02
PROVIDERS: Physician Assistant; EMERGENCY PHYSICIAN Emergency Medicine
DX: R56.9 Unspecified convulsions (principal); W19.XXXA Unspecified fall, initial encounter; Z95.0 Presence of cardiac pacemaker
CPT/HCPCS: 99285; 96374; 96361 ×2; 93288; 70450; 80053; 85025; 93005

== ENCOUNTER → 2024-05-28 15:10 | Outpatient (REF) | payer MEDICARE, OTHER, SELFPAY | LOC: DHSLP 15:10 | PROVIDERS: ATTENDING PHYSICIAN Psychiatry & Neurology Neurology; FAMILY PHYSICIAN Internal Medicine | DX: G47.61 Periodic limb movement disorder (principal); G47.00 Insomnia, unspecified; G47.8 Other sleep disorders; R06.83 Snoring | CPT/HCPCS: 95810 ==

== ENCOUNTER 2024-08-12 14:55 | Outpatient (RCR) | payer MEDICARE, OTHER, SELFPAY | END 2024-08-12 23:59 | disposition home or self-care (01) | LOC: RPT 14:55 | PROVIDERS: ATTENDING PHYSICIAN Internal Medicine | DX: M76.891 Other specified enthesopathies of right lower limb, excluding foot (principal); Z73.6 Limitation of activities due to disability; R26.89 Other abnormalities of gait and mobility; R56.9 Unspecified convulsions | CPT/HCPCS: 97110; 97162 ==

== ENCOUNTER 2024-08-13 19:37 | Emergency (ER) | payer MEDICARE, OTHER, SELFPAY ==
[2024-08-13 19:38] VITALS: BMI 26.8
[2024-08-13 19:39] VITALS: BP 141/77
[2024-08-13 19:57] LABS: % Basophils 0.5 % (0-2); % Eosinophils 0.3 % (0-6); % Immature Granulocytes 0.3 % (0-0.5); % Lymphocytes 13.8 % (20.5-51.1); % Monocytes 15.2 % (1.7-9.3); % Neutrophils 69.9 % (42.2-75.2); Absolute Lymphocytes 0.9 10^3/uL (1.2-3.4); Absolute Neutrophils 4.5 10^3/uL (1.4-6.5); Hematocrit 41.5 % (39.0-52.0); Hemoglobin 14.6 g/dL (13.0-18.0); Mean Corp Hgb Conc. 35.2 g/dL (33.0-37.0); Mean Corpuscular Volume 88.1 fL (80.0-94.0); Mean Platelet Volume 10.1 fL (7.4-10.4); Nucleated Red Blood Cells % 0 % (-); Platelet Count 175 10^3/uL (130-400); Red Blood Cell Count 4.71 10^6/uL (4.70-6.10); Red Cell Dist. Width 12.5 % (11.5-14.5); White Blood Cell Count 6.4 10^3/uL (4.8-10.8)
[2024-08-13 20:11] LABS: COVID-19 Antigen Negative (Negative); Lactic Acid 1.4 mmol/L (0.7-2.0)
[2024-08-13 20:13] LABS: ALT (SGPT) 143 U/L (0-50); AST (SGOT) 94 U/L (17-59); Albumin 4.5 g/dl (3.5-5.0); Alkaline Phosphatase 39 U/L (38-126); Blood Urea Nitrogen 23 mg/dl (9-20); Calcium 9.3 mg/dl (8.4-10.2); Carbon Dioxide 22 mmol/L (22-30); Chloride 99 mmol/L (98-107); Glucose 102 mg/dl (70-99); Potassium 4.4 mmol/L (3.5-5.1); Sodium 135 mmol/L (135-145); Total Bilirubin 0.8 mg/dl (0.2-1.3); Total Protein 7.2 g/dl (6.3-8.2); eGFR 53.74
--- NOTE | 2024-08-13 21:37 | ED.GENMED ---
History of Present Illness
General
Chief Complaint: Fever
Source: patient
Exam Limitations: none
Time Seen by Provider: 08/13/24 21:29
Nursing documentation reviewed up to this point in time: agreed with
History of Present Illness
History of Present Illness:
Patient to ED with complaint of fever, body aches, fatigue. Symptoms started 2-3 days ago. States he was advised by PCP to come to ED.
Past History
Past History
ED Past Medical History: HTN and Hypercholesterolemia
ED Past Surgical History: Appendectomy, Orthopedic and Tonsilectomy
Social History
Tobacco: Other
Alcohol: Occasional
Drug: None
Personal:
Living: with family
Employment: Other
Family History
Family History: Other
Review of Systems
Review of Systems
Allergies reviewed?: Yes
All Other Systems: ROS reviewed and negative except as documented in HPI and ROS
Constitutional: Reports fever and fatigue
EENT: Reports no symptoms
Cardiac: Reports no symptoms
ABD/GI: Reports no symptoms
: Reports no symptoms
Musculoskeletal: Reports no symptoms
Skin: Reports no symptoms
Neurological: Reports weakness
Phy Exam
General Physical Exam
General Presentation: well appearing and no apparent distress
General age: appears stated age
General Skin: warm and dry
General Habitus: normal
General Mental: alert
Cardiovascular Exam
Cardiovascular Exam: regular rate/rhythm and no edema
Pulmonary Exam
Pulmonary Exam: lungs clear and no respiratory distress
Musculoskeletal Exam
Musculoskeletal Exam: full ROM and neuro vasc intact
Skin Exam
Skin Exam: normal color, warm/dry and no rash
Psychiatric Exam
Psychiatric Exam: normal mood/affect
Course
Orders/Labs/Results
Orders:
Orders
08/13/24 19:42
CR Chest - 2 Views Urgent
Comment:
Reason For Exam: cough
08/13/24 19:51
COVID-19 Antigen Urgent
Source: Nasal Swab
Complete Blood Count/With Diff Urgent
Comprehensive Metabolic Panel Urgent
Lactic Acid Urgent
Influenza A+B Rapid Molecular Urgent
MICHAEL Source: Nasal Swab
Specimen Description:
08/13/24 21:35
0.9% Sodium Chloride 500 ml [Nss] 500 ml IV BOLUS
Abnormal Lab Results
08/13/24
19:51
Absolute Lymphs (auto) 0.9 L 10^3/uL
(1.2-3.4)
Absolute Monos (auto) 1.0 H 10^3/uL
(0.1-0.6)
Lymphocytes % 13.8 L %
(20.5-51.1)
Monocytes % 15.2 H %
(1.7-9.3)
BUN 23 H mg/dl
(9-20)
Creatinine 1.4 H mg/dL
(0.7-1.3)
Glucose 102 H mg/dl
(70-99)
AST 94 H U/L
(17-59)
ALT 143 H U/L
(0-50)
08/13/24 19:51
08/13/24 19:51
Vital Signs
Initial and Last Documented VS:
Initial Vital Signs
Temp Pulse Resp BP Pulse Ox
99.2 F 91 22 141/77 95
08/13/24 19:39 08/13/24 19:39 08/13/24 19:39 08/13/24 19:39 08/13/24 19:39
Last Documented Vital Signs
Temp Pulse Resp BP Pulse Ox
99.2 F 91 22 101/57 95
08/13/24 19:39 08/13/24 19:39 08/13/24 19:39 08/13/24 22:05 08/13/24 22:07
*Radiology
Radiology exam reviewed: radiology read reviewed
*Pulse Oximetry
Patient hypoxic: no
*Critical Care Note
Total Time (30-74mins, 75-104mins- exclusive of procedures): Not Applicable
ED Attending Note
-
Portions of this chart may have been created with voice recognition software.� Occasional wrong word or��sound alike� substitutions may have occurred due to the inherent limitations of voice recognition software.
Discharge Plan
Departure
Patient Disposition: Home (Routine Discharge)
Date of Disposition: 08/13/24
Time of Disposition: 22:17
Patient with high blood pressure during this ER visit?: No
Condition: Good
Covid-19: Not Applicable
Discharge Problem:
Fever in adult
Instructions: Fever, Adult (DC)
Prescriptions:
No Action
Metamucil Fiber Singles 1 PACKET powder in packet
0.5 packet PO DAILY
latanoprost 0.005 % Drops
1 drp BOTH EYES HS
therapeutic multivitamin Tablet
1 tab PO DAILY
ibuprofen [Advil] 200 mg Tablet
200 mg PO Q6HPRN PRN (Reason: mild pain)
olmesartan-hydrochlorothiazide 20-12.5 mg Tablet
1 tab PO DAILY
rosuvastatin 10 mg Tablet
10 mg PO MOWEFR
levetiracetam [Keppra] 500 mg tablet
500 mg PO BID Qty: 60 0RF
Activity Restrictions/Additional Instructions:
Follow up with your family doctor. Return to the emergency department immediately for any changes in/worsening of your symptoms
Interventions
Interventions:
*General Assessment Last Done: 08/13/24 19:39
*ED COVID-19 Vaccine History Last Done: 08/13/24 22:03
ED- Neurological Assessment Last Done: 08/13/24 22:05
ED-Skin Assessment Last Done: 08/13/24 22:05
Discharge Date and Time
Print Language: [place]
[2024-08-13 22:05] VITALS: BP 101/57
[2024-08-13] MEDS: NSS 500 IV (22:08)
[2024-08-13 23:00] VITALS: BP 101/62
== END 2024-08-13 23:28 | disposition home or self-care (01) ==
LOC: EMR 19:37
PROVIDERS: Emergency Medicine; EMERGENCY PHYSICIAN Emergency Medicine; FAMILY PHYSICIAN Internal Medicine
DX: R50.9 Fever, unspecified (principal); E78.00 Pure hypercholesterolemia, unspecified; I10 Essential (primary) hypertension; Z90.49 Acquired absence of other specified parts of digestive tract
CPT/HCPCS: 96360; 99284; 71046; 80053; 83605; 85025; 87502; 87811

== ENCOUNTER → 2024-09-08 08:55 | Outpatient (REF) | payer MEDICARE, OTHER, SELFPAY | LOC: RAD 08:55 | PROVIDERS: ATTENDING PHYSICIAN Nurse Practitioner Family | DX: R05.9 Cough, unspecified (principal) | CPT/HCPCS: 71046 ==

== ENCOUNTER 2024-09-11 09:57 | Outpatient (RCR) | payer MEDICARE, OTHER, SELFPAY | END 2024-09-11 23:59 | disposition home or self-care (01) | LOC: RPT 09:57 | PROVIDERS: ATTENDING PHYSICIAN Internal Medicine | DX: M76.891 Other specified enthesopathies of right lower limb, excluding foot (principal); Z73.6 Limitation of activities due to disability; R26.89 Other abnormalities of gait and mobility; R56.9 Unspecified convulsions | CPT/HCPCS: 97110; 97112 ==

== ENCOUNTER 2024-10-09 10:01 | Outpatient (RCR) | payer MEDICARE, OTHER, SELFPAY | END 2024-10-09 23:59 | disposition home or self-care (01) | LOC: RPT 10:01 | PROVIDERS: ATTENDING PHYSICIAN Internal Medicine | DX: M76.891 Other specified enthesopathies of right lower limb, excluding foot (principal); M25.551 Pain in right hip; M25.511 Pain in right shoulder; Z73.6 Limitation of activities due to disability; R26.89 Other abnormalities of gait and mobility; R56.9 Unspecified convulsions | CPT/HCPCS: 97110; 97112; 97164 ==

== ENCOUNTER 2024-10-16 09:53 | Outpatient (RCR) | payer MEDICARE, OTHER, SELFPAY | END 2024-10-16 14:03 | disposition home or self-care (01) | LOC: RPT 09:53 | PROVIDERS: ATTENDING PHYSICIAN Internal Medicine | DX: M76.891 Other specified enthesopathies of right lower limb, excluding foot (principal); M25.551 Pain in right hip; Z73.6 Limitation of activities due to disability; M25.511 Pain in right shoulder; R26.89 Other abnormalities of gait and mobility; R56.9 Unspecified convulsions | CPT/HCPCS: 97110 ==

== ENCOUNTER 2024-12-06 12:02 | Emergency (ER) | payer MEDICARE, OTHER, SELFPAY ==
[2024-12-06 12:05] VITALS: BP 140/90
--- NOTE | 2024-12-06 13:02 | ED.GENMED ---
History of Present Illness
General
Chief Complaint: Head Injury
Source: patient and spouse
Time Seen by Provider: 12/06/24 12:52
History of Present Illness
History of Present Illness:
73-year-old male with past medical history of hypertension, hyperlipidemia, seizures presenting to the emergency department for evaluation after he was taking apart a basketball net and the pole of the net snapped back and hit him along the right
side of the periorbital space causing bruising. Patient states he feels as if he is in his usual state of health but was concerned and wanted him to be further evaluated. Patient denies any visual changes, headache, nausea or vomiting, loss
of consciousness, use of anticoagulants. He has no other concerns at this time.
Past History
Past History
ED Past Medical History: HTN, Hypercholesterolemia and Seizures
ED Past Surgical History: Appendectomy, Cardiac, Orthopedic and Tonsilectomy
Social History
Tobacco: Former smoker
Alcohol: Occasional
Drug: None
Personal:
Living: with family
Employment: Other
Family History
Family History: Other
Review of Systems
Review of Systems
All Other Systems: ROS reviewed and negative except as documented in HPI and ROS
Phy Exam
Physical Exam
Physical Exam:
GENERAL: Alert , in no apparent distress
EYE: conjunctiva clear, pupils 4 mm bilateral, EOMI, no nystagmus, there is mild periorbital contusion along the lateral aspect of the orbit with slight tenderness.
Head: Normocephalic atraumatic
NECK: Supple, no midline tenderness
ENT: mmm.
LUNGS: no acute respiratory distress
NEUROLOGICAL: Alert and oriented
SKIN: Warm and dry, skin intact.
MUSCULOSKELETAL: well perfused.
PSYCH: Normal and appropriate interaction.
Scores
Heart Failure Risk
Heart Failure Risk Score: Not Applicable
Heart Score for Chest Pain Patients
STEMI patient?: Not applicable
Withdrawal Assessment of Alcohol
Withdrawal Assessment Completed?: Not applicable
Course
Vital Signs
Initial and Last Documented VS:
Initial Vital Signs
Temp Pulse Resp BP Pulse Ox
98 F 82 16 140/90 98
12/06/24 12:05 12/06/24 12:05 12/06/24 12:05 12/06/24 12:05 12/06/24 12:05
Last Documented Vital Signs
Temp Pulse Resp BP Pulse Ox
98.2 F 69 18 130/86 98
12/06/24 13:13 12/06/24 13:13 12/06/24 13:13 12/06/24 13:13 12/06/24 13:13
MDM/Problems Addressed
Differential Diagnosis Includes:
Periorbital contusion, concussion, intracranial bleeding, orbital fracture, I do not have concern for ocular pathology
MDM/Problems Addressed:
73-year-old male presenting to the emergency department for evaluation after being struck with a metal basketball pole while trying to take the basketball pole apart. Patient does have a contusion to the right periorbital space but otherwise no
abnormalities. We had extensive discussion about CT imaging and at this time both the patient and prefer to be discharged home and are okay for going CT scan. We discussed symptoms to look for to return to the emergency department including
headache, visual disturbances, vomiting or any changes in behavior. Patient lives within 10 minutes of the hospital and states he is okay returning to the hospital if he develops any of the symptoms or any other concerns. Advised patient to keep
ice over the affected area, Tylenol as needed for pain. Stable for discharge home
*Pulse Oximetry
Patient hypoxic: no
*Critical Care Note
Total Time (30-74mins, 75-104mins- exclusive of procedures): Not Applicable
Data Reviewed
Further Testing Considered But Not Given:
Considered CT scan of the face and orbital bones however patient declines imaging.
ED Attending Note
-
Portions of this chart may have been created with voice recognition software.� Occasional wrong word or��sound alike� substitutions may have occurred due to the inherent limitations of voice recognition software.
Discharge Plan
Departure
Patient Disposition: Home (Routine Discharge)
Date of Disposition: 12/06/24
Time of Disposition: 13:02
Patient with high blood pressure during this ER visit?: Yes
Discharge Problem:
Contusion of periorbital region, right
Instructions: Head Injury in Adults (DC), Contusion
Prescriptions:
No Action
Metamucil Fiber Singles 1 PACKET powder in packet
0.5 packet PO DAILY
latanoprost 0.005 % Drops
1 drp BOTH EYES HS
therapeutic multivitamin Tablet
1 tab PO DAILY
ibuprofen [Advil] 200 mg Tablet
200 mg PO Q6HPRN PRN (Reason: mild pain)
olmesartan-hydrochlorothiazide 20-12.5 mg Tablet
1 tab PO DAILY
rosuvastatin 10 mg Tablet
10 mg PO MOWEFR
levetiracetam [Keppra] 500 mg tablet
500 mg PO BID Qty: 60 0RF
Interventions
Interventions:
*Risk Screen - Suicide Last Done: 12/06/24 12:06
*General Assessment Last Done: 12/06/24 12:57
*Neglect/Abuse Screening Last Done: 12/06/24 12:06
*ED- Fall Risk Assessment Last Done: 12/06/24 12:57
*ED COVID-19 Vaccine History Last Done: 12/06/24 12:57
*Nursing Disposition Last Done: 12/06/24 13:13
ED- Neurological Assessment Last Done: 12/06/24 12:56
ED-Skin Assessment Last Done: 12/06/24 12:56
Discharge Date and Time
Discharge Date/Time: 12/06/24 13:14
Print Language: BENGALI
--- NOTE | 2024-12-06 13:12 | EDRN ---
Reviewed discharge instructions with patient. Verbalized understanding. Ambulated with steady gait to the lobby.
[2024-12-06 13:13] VITALS: BP 130/86
== END 2024-12-06 13:14 | disposition home or self-care (01) ==
LOC: EMR 12:02
PROVIDERS: EMERGENCY PHYSICIAN Emergency Medicine; FAMILY PHYSICIAN Internal Medicine
DX: S00.11XA Contusion of right eyelid and periocular area, initial encounter (principal); W22.09XA Striking against other stationary object, initial encounter; Y93.67 Activity, basketball; I10 Essential (primary) hypertension; E78.5 Hyperlipidemia, unspecified; E78.00 Pure hypercholesterolemia, unspecified; Z87.891 Personal history of nicotine dependence
CPT/HCPCS: 99282

== ENCOUNTER 2024-12-11 06:25 | Day surgery (SDC) | payer MEDICARE, OTHER, SELFPAY | END 2024-12-11 12:46 | disposition home or self-care (01) | LOC: GI 06:25 | PROVIDERS: ATTENDING PHYSICIAN Internal Medicine Gastroenterology | DX: Z12.11 Encounter for screening for malignant neoplasm of colon (principal); D12.2 Benign neoplasm of ascending colon; K63.89 Other specified diseases of intestine; K57.30 Diverticulosis of large intestine without perforation or abscess without bleeding; K64.8 Other hemorrhoids; Z86.0101 Personal history of adenomatous and serrated colon polyps | CPT/HCPCS: 45380; 88305 ==

== ENCOUNTER 2025-06-11 07:00 | Outpatient (RCR) | payer MEDICARE, OTHER, SELFPAY | END 2025-06-11 23:59 | disposition home or self-care (01) | LOC: RPT 07:00 | PROVIDERS: ATTENDING PHYSICIAN Nurse Practitioner Adult Health; FAMILY PHYSICIAN Internal Medicine | DX: R56.9 Unspecified convulsions (principal); R26.89 Other abnormalities of gait and mobility; R26.2 Difficulty in walking, not elsewhere classified; Z73.6 Limitation of activities due to disability | CPT/HCPCS: 97110; 97112; 97162; 97530 ==

== ENCOUNTER 2025-06-18 06:49 | Outpatient (RCR) | payer MEDICARE, OTHER, SELFPAY | END 2025-06-19 06:42 | disposition home or self-care (01) | LOC: RPT 06:49 | PROVIDERS: ATTENDING PHYSICIAN Nurse Practitioner Adult Health; FAMILY PHYSICIAN Internal Medicine | DX: R56.9 Unspecified convulsions (principal); R26.89 Other abnormalities of gait and mobility; R26.2 Difficulty in walking, not elsewhere classified; Z73.6 Limitation of activities due to disability | CPT/HCPCS: 97110; 97112; 97530 ==